=== PATIENT | female | born 2000 | race Caucasian/White ===

== ENCOUNTER 2022-02-19 20:10 | Inpatient (IN) | payer OTHER, SELFPAY ==
[2022-02-19] VITALS (31 sets, daily range): BP systolic 101–130; BP diastolic 51–96; PULSE 68–88; RESP 16–20; TEMP 36.8–37.1; O2SAT 83–100
[2022-02-19] MEDS: LACTATED RINGERS 1000 ML 1,000 ML 900 ML IV (20:49)
[2022-02-19 21:38] LABS: Basophils Percent Auto 0.1 % (0.0-3.0); Hematocrit 35.8 % (33.0-51.0); Immature Granulocytes Pct Auto 0.5 %; Lymphocytes Percent Auto 11.5 % (20-44); Mean Corpuscular HGB Conc 34 gm/dL (32-36); Mean Corpuscular Hemoglobin 31 pg (26-34); Mean Corpuscular Volume 93 fL (80-100); Monocytes Percent Auto 5.6 % (0.0-11.0); Neutrophils Percent Auto 81.3 % (42.0-72.0); Platelet Count* 315 K/uL (140-440); RDW Coefficient of Variation % 12.9 % (11.5-15.5); Red Blood Count 3.86 m/uL (4.00-5.20); White Blood Count* 18.48 K/uL (4.50-11.00)
[2022-02-19 21:39] LABS: Slide Review Reflex No
[2022-02-19] MEDS: ROPIVACAINE 0.2% 100 ml 100 ML 12 MG EPIDURAL (21:47)
[2022-02-19] MEDS: LIDOCAINE 2% (PF) 5 ML VIAL EPIDURAL (21:48)
--- NOTE | 2022-02-19 21:50 | PM.ANBPRC ---
PFSH PFS Social History Smoking Status: Current every day smoker Meds Home Medications and Allergies Home Medications Medication Instructions Recorded Confirmed Type vit no.95-ferrous tab PO 02/19/22 History fumarate 28 mg-folic acid 800 mcg tablet () Allergies Allergy/AdvReac Type Severity Reaction Status Date / Time Penicillins Allergy Swelling Unverified 02/19/22 21:05 of Lip/Tongue/Throat Results Labs Labs: Laboratory Results - last 24 hr 02/19/22 21:00 WBC 18.48 H RBC 3.86 L Hgb 12.0 Hct 35.8 MCV 93 MCH 31 MCHC 34 RDW Coeff of Mari 12.9 Plt Count 315 Neut % (Auto) 81.3 H Lymph % (Auto) 11.5 L [place] % (Auto) 5.6 Eos % (Auto) 1.0 Baso % (Auto) 0.1 Neut # (Auto) 15.00 H Lymph # (Auto) 2.10 [place] # (Auto) 1.00 H Eos # (Auto) 0.20 Baso # (Auto) 0.00 Abs Immat Gran (auto) 0.10 Imm/Tot Granulo (auto) 0.5 Vital Signs Vital Signs: Last Vital Signs Pulse 72 02/19/22 21:49 BP 124/63 02/19/22 21:49 Pulse Ox 98 02/19/22 21:46 Weight: 125.1 kg Height: 160.02 cm Anesthesia Procedures Epidural Insertion Patient Location: OB Start Time: 21:30 Stop Time: 22:00 Start Date: 02/19/22 Stop Date: 02/19/22 Reason for Block: primary anesthetic Patient Position: sitting Performed By: Donnie Jenkins Preanesthetic Checklist: IV checked, risks and benefits discussed, surgical consent, monitors and equipment checked, pre-op evaluation, timeout performed and anesthesia consent Prep: chlorhexidine gluconate Monitoring: blood pressure monitoring, insulation cupola operator, continuous pulse oximetry and heart rate Approach: midline Vertebral Space: lumbar (1-5) Needle Type: Tuohy needle Injection Technique: continuous catheter (catheter) Needle gauge: 17 Needle Length (cm): 10 cm Needle Insertion Depth (cm): 5 Catheter Gauge: 19 Catheter Type: multi-orifice Catheter at skin depth (cm): 10 Test Dose Result: negative and lidocaine 1.5% with epinephrine 1 to 200,000
[2022-02-19 21:53] LABS: SARS PCR* Negative SARS-CoV-2 (Negative)
--- NOTE | 2022-02-19 22:11 | P.OBHP_ITS ---
OB - H&P: HPI Labor/Induction History of Present Illness Date Seen: 02/19/22 Chief Complaint: The patient is a 21 year old 2 para 0010 at 41 2/7 weeks gestation by LMP consistent with first trimester US, who presents in labor, diverted from [address]. Patient presents to the ER with concerns uterine contractions and pain stating that she was checked at her clinic today and was found to be 4 cm dilated. NST upon admission, regular uterine contractions cerv ix was found to be 4-5 cm. Patient not coping well with pain desiring epidural. Admitted in labor for delivery. Chief complaint: labor : 2 Para: 0 Narrative: Letitia Guzman is a 21 year old female who had care and at [facility]. We have received a limited amount of care history. On 02/05/2022 it was documented that patient had a planned induction of labor on 02/04/2022 due to high BMI. Due to staffing issues her induction of labor was delayed. Patient was then admitted to [facility] on 02/06/2022 for induction of labor, it is documented that she was admitted for cervical ripening, no cervical change with closed cervix after multiple doses of Cytotec, unable to place a balloon. Discharge home on 02/08/2022. care labs: New OB labs: AB negative, antibody negative, rubella immune? , HIV negative, RPR negative, hepatitis-B surface antigen negative, hepatitis-C negative, gonorrhea chlamydia negative Hemoglobin from 02/06/2022 11.5. Hemoglobin A1c 5.1 Pap: Negative for intraepithelial lesion, no date Cell free DNA within normal limits, male GCT: 101 GBS positive no susceptibility and patient is allergic to penicillin History of Present Dating criteria: based on LMP care: other (Unknown, N/A at this moment) Abnormal ultrasound findings: Not available at this moment complications comment: Post-term , elevated BMI, smoker, history of major depressive diso Labs Blood type: AB (-) negative Rubella: immune RPR/VDLR: nonreactive GBS status: positive HBsAG: negative Meds Home Medications and Allergies Home Medications Medication Instructions Recorded Confirmed Type vit no.95-ferrous tab PO 02/19/22 History fumarate 28 mg-folic acid 800 mcg tablet () Allergies Allergy/AdvReac Type Severity Reaction Status Date / Time Penicillins Allergy Swelling Unverified 02/19/22 21:05 of Lip/Tongue/Throat OB - H&P: Exam Physical Exam: Vital signs: Pulse BP Pulse Ox 72 123/61 99 02/19/22 22:05 02/19/22 22:05 02/19/22 21:51 Narrative: VITAL SIGNS: As noted above. GENERAL APPEARANCE: Alert, cooperative female in pain. MOOD & AFFECT: Normal. ABDOMEN: Gravid : As per nursing 4-5 cm EXTREMITIES: Bilateral pitting edema +1 NST: 130 beats per minute/positive accelerations/negative deceleration/moderate variability/regular uterine contractions OB - Results Labs Labs: Short CBC 02/19/22 Range/Units 21:00 WBC 18.48 H (4.50-11.00) K/uL Hgb 12.0 (12.0-16.0) gm/dL Hct 35.8 (33.0-51.0) % Plt Count 315 (140-440) K/uL OB - Problem Based A/P Additional Plan (1) : Status: Acute (2) Depression: Status: Acute Plan Will try to obtain more records, we are missing results for imaging etcetera. GBS positive, allergic to penicillin, no susceptibilities available will start vancomycin per protocol. In labor, continuos monitoring, will plan to re check cervix in 4 hours from last check. Epidural being placed as this note is completed. RH negative, need to collect baby blood at delivery.
[2022-02-20] VITALS (31 sets, daily range): BP systolic 102–128; BP diastolic 51–87; PULSE 58–123; RESP 14–20; TEMP 36.6–37.1; O2SAT 96–98
[2022-02-20] MEDS: LACTATED RINGERS 1000 ML 1,000 ML 125 ML IV (01:09)
[2022-02-20] MEDS: OXYTOCIN 10 UNIT/ML INJ IM (04:17)
--- NOTE | 2022-02-20 04:32 | PM.OBPRCVD ---
Procedure Delivery date: 02/20/22 Procedure Done: only Events: Labor Augmentation Intrapartal Events: Labor Augmentation Induction method: AROM Delivery augmentation: rupture of membranes Delivery monitor: external FHT Route of delivery: Episiotomy description: None Laceration description: None Estimated blood loss (mL): 50 Anesthesia type: Epidural Disposition: floor Complications: None Narrative: The patient is a 21 year-old G 2 P 1011 admitted on 02/19/2022 at 41 Weeks, 2 Days gestation in labor for delivery.? Cervical exam on admission was 5 cm/100 % effaced/-2 station with membranes intact in vertex presentation.? Contractions were every 2-3 minutes.? heart rate demonstrated baseline 130 bpm with moderate variability, positive accelerations, negative decelerations; a category 1 tracing.? A ROM occurred at 0307 with clear fluid. ? Labor Analgesia:? Epidural ? Pitocin:? No ? Labor onset:? 02/19/2022 at 2000 ? Complete:? 0341 ? Pushing:? 0349 ? heart tones during second stage were category 2. ? At 0414 a viable male delivered in vertex ALANNAH presentation over intact perineum via spontaneous vaginal delivery.? was placed on maternal abdomen.? Cord was clamped and cut after a 30-60 second delay.? Nose and mouth were bulb suctioned.? weight pending.? 8 at 1 minute and 9 at 5 minutes.? Shoulder dystocia: No.? Nuchal cord: Yes x2. ? Placenta delivered spontaneously and complete at 0423 with a 3 vessel cord. ? Mother and infant were stable after delivery. ? Lacerations:? None. ? Blood loss: 50mL. Blood loss measurement type: QBL ? Sponge and needles counts are correct. [place] Infant Infant Gender: Male presentation: vertex Placental Delivery Description: Spontaneous Cord Description: 3 Vessels and Nuchal Cord
[2022-02-20] MEDS: DOCUSATE SODIUM 100 MG CAPSULE PO (13:00)
[2022-02-20] MEDS: ACETAMINOPHEN 500 MG TABLET 1000 MG PO (13:01)
[2022-02-20] MEDS: IBUPROFEN 600 MG TABLET PO (15:51)
[2022-02-21] MEDS: ACETAMINOPHEN 500 MG TABLET 1000 MG PO ×2 (02:58→19:51)
[2022-02-21 03:15] VITALS: BP 108/82; PULSE 69; RESP 16; TEMP 36.8; O2SAT 98
--- NOTE | 2022-02-21 07:09 | PC.NURSE ---
Throught the shift, Rn worked with patient and significant other on and the benefits of feeding. The patients child was hesitant to feed and took multiple attempts before latching and having no suck reflex with the breast. RN educated patient on formula feeding and the patient was accepting of this option. RN noticed increased frustration from mom regarding baby's lack of feeding. RN witnessed mom and dad both speaking to baby in loud and harsh tones stating Hurry up already baby, and why wont you do it already. RN educated the patient on speaking to the baby in a calm tone and how to calm a baby with the 5 S's. Patient demonstrated understanding.
--- NOTE | 2022-02-21 07:52 | P.OBPN_ITS ---
OB - PN:Subj Subjective Time Seen by Provider: 07:53 Date Seen: 02/21/22 Interval history: Letitia is a 21 y.o. who was admitted to L & D for labor. She had an uncomplicated NVD. Patient comments OB post-: no complaints, pain well controlled, tolerating diet and flatus present [place] infant status: bottle, and doing well feeding status: breast and bottle feeding Narrative: The patient feels well. The pain is well controlled with current medications. She has no new complaints. She is breast feeding and reports sh is struggling with latch.? the patient has done well.? Vitals have been stable.? She has remained afebrile.? Has a good appetite, is tolerating a general diet. She is voiding without difficulty.? She is passing gas and has not had a bowel movement.? She is ambulating and denies any dizziness.? Has Small amount of rubra lochia. OB - PN: Obj Exam Physical Exam: Vital signs: Temp Pulse Resp BP Pulse Ox O2 Del Method 98.2 F 69 16 108/82 98 02/21/22 03:15 02/21/22 03:15 02/21/22 03:15 02/21/22 03:15 02/21/22 03:15 02/21/22 03:15 Narrative: GENERAL APPEARANCE: normal affect, alert, no distress MOOD: appropriate HEENT: normocephalic, neck supple, full ROM CHEST: Symmetrical chest wall movement. Normal respiratory effort. Clear to auscultation HEART: regular rate and rhythm ABDOMEN: soft, non-tender. Uterine fundus is firm, at Umbilicus, Midline and is appropriate for the stage of recovery. Bowel sounds present. PERINEUM: mild edema of the perineum, there is no lacerations EXTREMITIES: normal and no edema OB - PN: Obj Data Labs Labs: Laboratory Results - last 24 hr 02/21/22 05:30 Hgb 10.0 L OB - PN: A/P Vaginal Delivery Assessment and Plan (1) Depression: Status: Acute (2) NVD (normal vaginal delivery): Status: Acute (3) Lactating mother: Status: Acute Plan Plan: routine care Comments: G 2 P 1 status post uncomplicated NVD 1. Continue route PP cares 2. , having difficulty w/ latch. Plan to see 3. Acute anemia. Encourage iron rich foods 4. Anticipate discharge home tomorrow. May consider discharge home today if baby is feeding better. She prefers to stay if it is not. 5. Social work consult placed by RN. Letitia has been seen yelling at the baby w hen it is struggling to latch/eat.
[2022-02-21 08:00] VITALS: BP 111/73; PULSE 54; RESP 16; TEMP 36.6; O2SAT 98
[2022-02-21] MEDS: DOCUSATE SODIUM 100 MG CAPSULE PO (08:30)
[2022-02-21] MEDS: IBUPROFEN 600 MG TABLET PO (08:30)
[2022-02-21 16:48] VITALS: BP 110/70; PULSE 52; RESP 16; TEMP 36.7; O2SAT 99
--- NOTE | 2022-02-21 20:35 | PM.OBPNVD1 ---
OB - PN:Subj Subjective Time Seen by Provider: 19:30 Date Seen: 02/21/22 Interval history: Letitia is a 21 y.o. who was admitted to L & D for labor. She had an uncomplicated NVD. feeding status: breast and bottle feeding Narrative: Pt was rounded on this morning. Baby was not eating well, and she decided to stay another day to get help with this. Pt has been noted to be agitated at times and frustrated, especially in regards to the feedings. States she was supposed to go on medication, but did not when the occurred. She expressed interest in starting medication since she is now . Spoke w/ pt about history of medication, and she does not know what she has previously taken or what they were planning to start her on. She admits to a history of depression, anxiety and bipolar. When mentioned, she believes she may have previously taken lexapro and that it did not work for her. OB - PN: Obj Exam Physical Exam: Vital signs: Temp Pulse Resp BP Pulse Ox O2 Del Method 98.1 F 52 L 16 110/70 99 02/21/22 16:48 02/21/22 16:48 02/21/22 16:48 02/21/22 16:48 02/21/22 16:48 02/21/22 16:48 Constitutional: Constitutional: mild distress, cooperative and agitated Routine HEENT Exam: Head: Present normocephalic Routine Neck Exam: Neck: Present full ROM Routine Back/Spine/Pelvis Exam: Back/Spine: Present full ROM Routine Neurological Exam: Neurological: Present alert and oriented X3 Routine Psychiatric Exam: Psychiatric: Present normal affect, normal thought process, cooperative, anxious and agitated OB - PN: Obj Data Labs Labs: Laboratory Results - last 24 hr 02/21/22 05:30 Hgb 10.0 L OB - PN: A/P Vaginal Delivery Assessment and Plan (1) Depression: Status: Acute (2) NVD (normal vaginal delivery): Status: Acute (3) Lactating mother: Status: Acute Plan day: 1 Plan: routine care Comments: Pt was seen by CNM because the RNs stated she expressed interest in being on medication. Pt feels the problem is more her depression & anxiety and less her bipolar at this time. Given her history, and concern for lack of follow up as she is routinely seen in another hospital system, recommendation made that she follow up with psychiatry for medication management and follow up. Referral placed to Alisha Chacon at [facility]. Pt could also follow up with her PCP at [facility].
[2022-02-21 23:28] VITALS: BP 117/75; PULSE 62; RESP 18; TEMP 36.7; O2SAT 97
[2022-02-22] MEDS: ACETAMINOPHEN 500 MG TABLET 1000 MG PO (05:10)
--- NOTE | 2022-02-22 08:30 | PM.OBDSVD1 ---
DS: Providers Provider Date Seen: 02/22/22 Date of admission: 02/19/22 20:30 Primary care physician: Not a Local Provider Admitting Clinician: Kami Jordan MD Consults: 02/21/22 07:22 Consult to Chart Reader [CONS] Urgent Comment: Social, High stress pt, inappropriate comm with NB Reason for Consult:: Social Service Consult Attending Physician on discharge: Kami Jordan MD Date of Discharge: 02/22/22 DS: Diagnosis Discharge Diagnosis (1) History of bipolar disorder: Status: Acute (2) Anxiety and depression: Status: Acute (3) Lactating mother: Status: Acute (4) NVD (normal vaginal delivery): Status: Acute Exam Narrative: Exam Narrative: GENERAL APPEARANCE:? normal affect, alert, no distress? MOOD:? appropriate? CHEST:? clear to auscultation and percussion? HEART:? regular rate and rhythm? ABDOMEN:? soft, non-tender the uterine fundus is 2 cm Below Umbilicus, Midline and is appropriate for the stage of recovery.? PERINEUM:? mild edema of the perineum, her perineum is intact.? EXTREMITIES:? normal and no edema? Patient has no complaints? No active bleeding?? Doing well? She is requesting discharge home. Const: Vital Signs, click to edit/add: Vital Signs - 24 hr 02/21/22 16:48 02/21/22 23:28 Temperature 98.1 F 98.0 F Pulse Rate [Pulse Oximeter] 52 L 62 Respiratory Rate 16 18 Blood Pressure [Le ft Arm] 110/70 117/75 Pulse Oximetry 99 97 Oxygen Delivery Me thod Room Air Room Air OB - DS: Summary Hospital Course Hospital Course: Patient is a 21year old, G 2 now P 1? admitted on 02/19/22 at 39 Weeks, 0 Days gestation for spontaneous labor. Care received in [place] but diverted here due to staffing issues there.? She had an uncomplicated vaginal delivery.? She delivered a viable male infant.? She is breast feeding and reports things are getting better. she is open to supplementation with formula. She states that she thought it would be much easier so is sometimes frustrated. she was seen by medical social consultant after staff witnessed her talking in raised voices to the baby and seeming frustrated with feedings. They state that she is being followed by a public health nurse and a referral was made to psychiatry.? the patient has done well.? Her pain is well controlled with current medications.? She has no new complaints.? Vitals have been stable. She has remained afebrile. She is voiding without difficulty. She is passing gas and has had a bowel movement. She is ambulating and denies any dizziness. She is planning condoms for control.?Reviewed that she ovulates before return of menstruation. She doesn't want to go on control pills because they messed with my periods when she was in high school.?? Peripartum Data Infant delivery method: Vaginal Laceration description: None Episiotomy description: None complications: none [place] Infant Gender: Male Discharge Plan: Home Status at Discharge Functional status at discharge: independent ambulation Overall status at discharge: patient is progressing back to baseline Time Spent with Patient Time attestation: Total time spent providing and/or coordinating discharge services: Discharge Plan Discharge Disposition: Home, Self-Care Date of Admission: 02/19/22 20:30 Primary Care Provider: Provider,Not a Local Condition: Stable Anticipated Discharge Date/Time: 02/22/22 10:00 Discharge Medications: New docusate sodium 100 mg Capsule 100 mg PO DAILY Qty: 90 0RF Rx Instructions: Take 1-2 tablets daily as needed for constipation. ibuprofen 600 mg Tablet 600 mg PO Q6H PRNQty: 60 0RF Continued PNV cmb#95-ferrous fumarate-FA [] 28 mg iron- 800 mcg tablet PO Label Comments: TAKE 1 TABLET BY MOUTH DAILY Discharge Orders: Discharge Order (Routine); Ordered 02/22/22 Ordered By: Gisel Middleton Patient Education: OB Over the Counter Medication Information, OB Vaginal/Breast Feeding Additional Instructions: Discharge instructions were reviewed with the patient including signs and symptoms of infection and home going medications.? Do not drive while taking pain meds.? Off Work or School for 6 weeks.? ?? Symptoms to report to doctor:? -Bleeding that saturates more than one pad per hour? -Passing clots larger than the size of a golf ball? -Pain not relieved by prescribed medication? -Fever above 100.4 degrees Fahrenheit? -A foul vaginal odor? -Difficulty in emotions, mood and functions? -Thoughts of hurting yourself and/or ? -Painful, reddened area in your breast? -Any drainage, redness or tenderness in your IV/epidural site? -Severe headache that doesn't improve after taking medications? -Changes in vision, including temporary loss of vision, blurred vision, and/or light sensitivity? -Upper abdominal pain (usually under ribs on the right side)? -Decrease in urination or painful, frequent urinating? -Chest pain? -Shortness of breath? -Tenderness or pain with redness and/swelling in the calf(s) of your leg? ?? Follow Up in clinic in 2 and 6 weeks.? ?? consultation services are available to all mothers and babies for the first year after delivery.? To make an appointment, please call [phone].? Activity Level: No Restrictions and Activity as Tolerated Activity Detail: Appointment March 08 at 2:15 pm with Gisel Middleton CNM Discharge Diet: Regular Follow Up Appointments: [facility] [Provider Group] Provider,Not a Local [Primary Care Provider] - Forms: MyHealth Info Instructions
[2022-02-22 09:15] VITALS: BP 120/72; PULSE 64; RESP 18; TEMP 36.3; O2SAT 98
--- NOTE | 2022-02-22 10:14 | PC.SOCIAL ---
Late entry note from 02/21/22. Met with pt and pt's significant other in pt's room. Introduced self to pt and pt's significant other. Pt asked this worker if this worker was there to take her baby from her. Explained the social work role in the hospital setting. Informed pt that [facility] wants to ensure that pt has all the resources she needs to be successful at home with her . Discussed concerns of pt using a paez voice directed at baby during time. Pt states that she was frustrated with herself when this occurred and she was not directing it at the baby. Pt discusses that she understands is best for baby and it frustrates her when the baby originally latched on and fed but then at later feedings baby would not latch on as easy. Offered mental health resources for therapy services and pt declined. Discussed the garden consultant and asked if it would be helpful for pt to have the information going home so she can have support for . Pt stated she would like the information. Discussed that newborns sense parents feelings including frustration and may react to pt's feelings. Discussed [facility] as being an excellent resource for information and assistance with a . Pt states that she is currently working with [facility] and is also currently signed up with [facility] services. Pt states that [facility] has offered resources for her also and she will be meeting with [facility] after discharging from the hospital. Provided information on parenting classes through [facility] and discussed how pt can go to the [facility] website and register for classes and view the class selection. Informed that classes may be beneficial since pt disclosed she is a first time mother. Informed pt that social work is available to her if she has any other questions or concerns. Social work will follow up as necessary.
== END 2022-02-22 10:30 | disposition home or self-care (01) | DRG 560 ==
PROVIDERS: Admitting Provider Obstetrics & Gynecology; Visit Provider Obstetrics & Gynecology
DX: O48.0 Post-term pregnancy (principal); O99.824 Streptococcus B carrier state complicating childbirth; O99.344 Other mental disorders complicating childbirth; F32.9 Major depressive disorder, single episode, unspecified; F41.9 Anxiety disorder, unspecified; O99.334 Smoking (tobacco) complicating childbirth; F17.210 Nicotine dependence, cigarettes, uncomplicated; Z3A.41 41 weeks gestation of pregnancy; Z37.0 Single live birth
CPT/HCPCS: 01967; 36415; 85018; 85025; 86850; 86900; 86901; 87635; 99213; A9270; J2590; J2795; J3010; J3370; J7120

== ENCOUNTER 2022-03-24 20:20 | Emergency (ER) | payer OTHER, SELFPAY ==
[2022-03-24 20:26] VITALS: BP 128/79; PULSE 102; RESP 16; TEMP 36.3; O2SAT 96
--- NOTE | 2022-03-24 20:52 | ED_ITS ---
HPI - Dental/Oral General Chief complaint: Dental/Oral/Mouth Injury/Pain Stated complaint: Left side tooth pain, Can't eat Time Seen by Provider: 03/24/22 20:36 History of Present Illness HPI Narrative: 21-year-old young woman here with significant other with concern of tooth pain. This started yesterday. Does not recall any particular trauma. She apparently did have a temporary filling placed during her last probably about 5 months ago in lieu of a root canal. She said things were going well until yesterday. Has not had any fever. Has noticed a little bit of swelling. No drainage. Ibuprofen took a little bit of the edge off. She is worried that she might be developing an infection. Apparently significant other had rather significant dental infection once upon a time. Sensitive to both hot and cold. A given timing she intends to get a dental appointment after the new year. Related Data Home Medications Medication Instructions Recorded Confirmed vit no.95-ferrous tab PO 02/19/22 03/08/22 fumarate 28 mg-folic acid 800 mcg tablet () Previous Rx's Medication Instructions Recorded docusate sodium 100 mg capsule 100 mg PO DAILY #90 caps 02/22/22 ibuprofen 600 mg tablet 600 mg PO Q6H PRN #60 tabs 02/22/22 Allergies Allergy/AdvReac Type Severity Reaction Status Date / Time Penicillins Allergy Swelling Unverified 03/08/22 15:05 of Lip/Tongue/Throat Review of Systems Status of ROS: Reports: 6 or more systems reviewed and unremarkable except as noted in History and below [facility] Medical History Bipolar disorder Social History Smoking Status: Current every day smoker Second hand tobacco smoke exposure: Yes How often do you have a drink containing alcohol: never AUDIT-C Alcohol total score: 0 Non-prescribed substance use: denies use Little interest or pleasure in doing things: not at all Feeling down, depressed, or hopeless: not at all service: No Exam Narrative: Exam Narrative: Pleasant. NAD. Dressed in her jammies. Breathing easily. Skin is warm and dry. Neck is supple without lymphadenopathy. Perhaps very subtle swelling in the middle of the left mandible. Not particularly tender here. Oropharynx moist. Hyperemic consistent with smoking. There is plaque along the gum line on the tooth in question 19.. This has a white intact brought filling over the chewing surface. I do not appreciate swelling along the gums or elsewhere in the mouth. Mildly tender to percussion. Const: Vital Signs, click to edit/add: Vital Signs - 24 hr 03/24/22 20:26 Temperature 97.3 F L Pulse Rate [Left P ulse Oximeter] 102 H Respiratory Rate 16 Blood Pressure [Ri ght Upper Arm] 128/79 Pulse Oximetry 96 Oxygen Delivery Me thod Room Air Documenting provider has reviewed patient's vital signs: yes Course Vital Signs Vital signs: Initial Vital Signs Temperature 97.3 F L 03/24/22 20:26 Temperature Source Temporal Artery Scan 03/24/22 20:26 Pulse Rate 102 H 03/24/22 20:26 Pulse Rhythm 03/24/22 20:26 Respiratory Rate 16 03/24/22 20:26 Blood Pressure 128/79 03/24/22 20:26 Blood Pressure Mean 95 03/24/22 20:26 Blood Pressure Position Sitting 03/24/22 20:26 Pulse Oximetry 96 03/24/22 20:26 Oxygen Delivery Method 03/24/22 20:26 Vital Signs Temperature 97.3 F L 03/24/22 20:26 Pulse Rate 102 H 03/24/22 20:26 Respiratory Rate 16 03/24/22 20:26 Blood Pressure 128/79 03/24/22 20:26 Pulse Oximetry 96 03/24/22 20:26 Oxygen Delivery Method 03/24/22 20:26 Temperature 97.3 F L 03/24/22 20:26 Pulse Rate 102 H 03/24/22 20:26 Respiratory Rate 16 03/24/22 20:26 Blood Pressure 128/79 03/24/22 20:26 Pulse Oximetry 96 03/24/22 20:26 Oxygen Delivery Method 03/24/22 20:26 MDM - Dental/Oral MDM Narrative Medical decision making narrative: I do offer injection for pain. It certainly is possible that could be developing an infectious process here; or more probable perhaps that related to the dental issue already having. Had been apparently recommended for root canal but due to had been deferred. I think it would be appropriate to initiate an antibiotic. Does not feel she needs more than ibuprofen at this time. She is hopeful that an antibiotic would kick in soon. Given what sounds like a significant allergy to penicillin will otherwise try cephalexin from [facility]. Medical Records Attestation: I reviewed the patient's medical records. Discharge Plan Discharge Clinical Impression: Pain, dental Patient Disposition: Home, Self-Care Condition: Stable Additional Instructions: At this time can continue with ibuprofen up to 800 mg per dose or alternative to that might be up to 500 mg of naproxen 2 times daily. Either can be combined with up to 1000 mg of acetaminophen per dose. Cephalexin from [facility]. Take the cephalexin for 8 days. I hope you can manage to find a dental appointment soon. A happier new year to you. Prescriptions: No Action PNV cmb#95-ferrous fumarate-FA [] 28 mg iron- 800 mcg tablet PO Label Comments: TAKE 1 TABLET BY MOUTH DAILY docusate sodium 100 mg Capsule 100 mg PO DAILY Qty: 90 0RF Rx Instructions: Take 1-2 tablets daily as needed for constipation. ibuprofen 600 mg Tablet 600 mg PO Q6H PRNQty: 60 0RF Follow Up/Referrals: Provider,Not a Local [Primary Care Provider] - Stand Alone Forms: [email or web address] Info Instructions
== END 2022-03-24 21:11 | disposition home or self-care (01) ==
LOC: ED 20:53
PROVIDERS: Emergency Provider Family Medicine
DX: K08.89 Other specified disorders of teeth and supporting structures (principal)
CPT/HCPCS: 99283

== ENCOUNTER 2024-04-12 20:42 | Emergency (ER) | payer OTHER, SELFPAY ==
--- OUTSIDE RECORDS SUMMARY | 2024-04-12 20:45 | XMS_ITS | Continuity of Care Document ---
Author Organization 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 Role Phone Unavailable Unavailable Unavailable Allergies, Adverse Reactions, Alerts Substance Reaction Status Criticality PENICILLIN Active No Information Medications Medication Instructions Dosage Effective Dates (start - stop) Status Comments Zoloft 50 mg tablet 1.5 tablet by Oral route 1 time per day - Active Zoloft 1.5 tablet by Oral route 1 time per [id number] Tablet1 Trivora (28) 50-30 (6)/75-40(5)/125-3 0(10) tablet 1 Tablet by Oral route 1 time per day - Active Trivora (28 ) 1 Tablet by Oral route 1 time per day1 Pack3 Clindacin P 1 % topical swab 1 Topical by Oral route 1 time per day - Active Clindacin P 1 Topical by Oral route 1 time per day60 Milliliter1 Results Test Name Date and Time Measure Units Reference Range Abnormal Flag Status Commen ts Panel Description: Not Available Final Depression Screen 00:00:00 Final Advance Directives Directive Yes / No Effective Date File Name No Information Encounters Encounter Description Practice Location Reason(s) For Visit Diagnoses Date Provider Providers Copied on Encounter [facility], [address], [place], [place], [id number] , [place] tel: [phone] [facility] Historical Location No Information [address] [facility], [address], [place], [place], [id number] , tel: [phone] [facility] Historical Location No Information 8 Alphonso Charles. [address], [place], [place], [id number], [place]. tel: [facility], [address], [place], [id number] , [place] tel: [phone] [facility] Historical Location Major depressive disorder, recurrent, unspecified ICD10 [address] [facility], [address], [place], [id number] , [place] tel: [phone] [facility] Historical Location No Information 8 Freel Araceli. [address], [place], [place], [id number], [place]. tel: [facility], [address], [place], [id number] , [place] tel: [phone] [facility] Historical Location S70.361_Insect bite (nonvenomous), right thigh [address] [facility], [address], [place], [id number] , [place] tel: [phone] [facility] Historical Location No Information 8 Freel Araceli. [address], [place], [place], [id number], [place]. tel: [facility], [address], [place], [id number] , [place] tel: [phone] [facility] Historical Location Painful micturition, unspecified [id number] ICD10 [address] [facility], [address], [place], [id number] , [place] tel: [phone] [facility] Historical Location No Information [address] [facility], [address], [place], [id number] , [place] tel: [phone] [facility] Historical Location Encounter for immunization ICD10 [address] [facility], [address], [place], [id number] , [place] tel: [phone] [facility] Historical Location Dorsalgia, unspecified ICD10 May-2 [address] [facility], [address], [place], [place], [id number] , tel: [phone] [facility] Historical Location Cough [id number] media, unspecified, unspecified ear [id number] specified disorders of urinary system OFY80Bdjqd specified inflammation of vagina and vulva [id number] for contraceptive management, unspecified [id number] for surveillance of other contraceptives DQN01Aatalbjpv for immunization [id number]_UN SPECIFIED SPRAIN OF UNSPECIFIED HIPAcne, unspecified [id number] for routine child health exam w/o abnormal findings ICD10 [address] [facility], [address], [place], [id number] , tel: [phone] [facility] Historical Location Urticaria, unspecified ICD10 5 No Information Family History Family Member Type Diagnosis Age At Onset No Information Immunizations Vaccine Date Status Comments Influenza administered Note: Administe yvonne lagos ; Source: New Immunization Record Influenza administered Note: Given MF MA ; Source: New Immunization Record Meningococcal administered Note: Given MF MA ; Source: New Immunization Record Hep B administered Source: New Imm unization Record Varicella administered Source: New Imm unization Record MMR administered Source: New Imm unization Record Meningococcal administered Source: New Im munization Record [id number] administered Source: New Imm unization Record DTaP administered Source: New Imm unization Record DTaP-IPV administered Source: New Imm unization Record Tdap administered Source: New Imm unization Record HIB administered Source: New Imm unization Record Hep A administered Source: New Imm unization Record HPV administered Source: New Imm unization Record Payers Payer name Insurance type Covered libertarian ID Authoriza tion(s) No Information Social History Type Description Quantity Date Captured Comments Sex Female Smoking Status No Information Chief Complaint And Reason For Visit No Information Reason For Referral Reason For Referral No Information History Of Present Illness Encounter Date Complaint History Of Prese nt Illness No Information Functional Status Date Functional Assessmen t No Information Instructions Date Instruction Additional Infor mation No Information Assessments Type Assessment Date No Information Patient Care Teams Name Effective Dates (start - stop) Status Members No Information
--- OUTSIDE RECORDS SUMMARY | 2024-04-12 20:45 | XMS_ITS | Referral Summary ---
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 Primary Care Provider Source Comments Patient records contain information from all sites at [facility]. For routine questions regarding patient records, call [phone] during business hours, M-F 8:00 AM - 5:00 PM Central Time. Record requests for emergency care only can be directed to [phone] at any time.[facility] Allergies Active Allergy Reactions Criticality Noted Date Comments Penicillins Anaphylaxis High 05/11/2021 Medications * This document contains information received from the source organization and may not represent a complete record from that organization. acetaminophen (TYLENOL) 500 mg tablet Take 500 mg by mouth every 6 (six) hours as needed for pain. Active vitamin-iron fumarate-FA ( Vitamin with Minerals) 28 mg iron- 800 mcg tabletIndication s:Encounter For Supervision Of Normal First Unspecified Trimester (HCC) Take 1 tablet by mouth daily. 60 tablet 3 2 Active cholecalciferol, vitamin D3, (cholecalciferol ) 25 mcg (1,000 Unit) tablet Take 1 tablet (25 mcg total) by mouth daily. 90 tablet 3 2 Active Additional Information Patient not taking.Reported on 08/01/2022 Active Problems Patient Care Coordination No te Formatting of this note migh t be different from the original. First trimester OB education completed. Pre-reg completed at [facility]. 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 Compared with normal- weight women, obese women are at increased risk of cardiac dysfunction, proteinuria, sleep apnea, nonalcoholic fatty liver disease, gestational diabetes mellitus, preeclampsia and stillbirth. Intrapartum; obese women are at increased risk of delivery, failed trial of labor, endometritis, wound rupture or dehiscence, and venous thrombosis. Maternal risks also include obstructive sleep apnea, carpal tunnel syndrome. These women are also at risk for excessive weight gain in and an inability to lose the weight following . Fetuses of obese gravidas are also at increased risk of macrosomia and impaired growth, Long-term risks for the offspring of obese women include an increased risk of metabolic syndrome and childhood obesity. Maternal obesity also has also been linked to altered behavior in the offspring, including an increased risk of autism spectrum disorders, childhood developmental delay, and attention-deficit/hyperactivity disorder. Recommendations include a detailed ultrasound survey, screening for pregestational diabetes, serial growth ultrasounds, surveillance beginning at 36 weeks, delivery at 39 weeks if not indicated sooner. Recommend no weight gain this . Depression Major Recurrent Moderate 06/30/2021 Overview (06/30/2021): No current medications No current mental health care Reports stable mood for past year No prior hospitalizations No suicidality Encounter For Supervision Of Normal First Unspecified Trimester 06/30/2021 Overview (09/28/2021): Breast feeding Contraception: condoms, possibly LARC Abuse Tobacco Smoking 05/11/2021 Overview (06/30/2021): risks associated with tobacco use include orofacial clefts, growth restriction, placenta previa, placental abruption, prelabor rupture of membranes, low weight, increased mortality, ectopic , and decreased maternal thyroid function. An estimated 5-8% of deliveries, 13-19% of term infants with low weight, 22-34% cases of sudden syndrome, and 5-7% of - related deaths have been attributed to maternal smoking. In addition, secondhand exposure to tobacco smoke is associated with as much as a 20% increase in risk of a low weight infant. The risks of smoking during include complications. Children born to women who smoke during are at an increased risk of respiratory infections, asthma, infantile colic, bone fractures, and childhood obesity. Estimated Date of Delivery Comme nts Yes 07/13/2024 Based on last me nstrual period of 10/07/2023 Resolved Problems Problem Noted Date Diagnosed Date Resolved Date Complete Spontaneous 05/11/2021 09/28/2021 Encounter For Prophylactic R hogam D Immune Globulin 05/11/2021 09/28/2021 Type AB Blood Rhesus Negative 05/11/2021 09/28/2021 Overview (05/11/2021): Per report of patient based on testing at [facility] on 05/03/2021 Immunizations Immunization Administration Dates Next Due Rho (D) Immune Globulin (IM only) 11/17/2021, Tdap 11/17/2021 Social History Tobacco Use Types Packs/Day Years Used Date Smoking Tobacco: Former Cigarettes Smokeless Tobacco: Never Tobacco Cessation:Counseling Given: Not Answered Alcohol Use Standard Drinks/Week Comments Not Currently 0 (1 standard drink = 0.6 oz pur e alcohol) [facility] Utilities Answer Date Recorded In the past 12 months has [facility] [employer], oil, or water [employer] threatened to shut off services in your home? No 11/10/2023 Humiliation, Afraid, Rape, and Kick questionnair e Answer Date Recorded Within the last year, have y ou been afraid of your partner or ex-partner? No 06/21/2021 Within the last year, have y ou been humiliated or emotionally abused in other ways by your partner or ex-partner? No Within the last year, have y ou been kicked, hit, slapped, or otherwise physically hurt by your partner or ex-partner? No 06/21/2021 Within the last year, have y ou been raped or forced to have any kind of sexual activity by your partner or ex-partner? No 06/21/2021 Social Connection and Isolat ion Panel [NHANES] Answer Date Recorded In a typical week, how many times do you talk on the phone with family, friends, or neighbors? Three times a week 06/21/2021 How often do you get togethe r with friends or relatives? More than three times a week 06/21/2021 How often do you attend chur ch or adventism services? Never 06/21/2021 Do you belong to any clubs o r organizations such as restorationism groups, unions, fraternal or athletic groups, or school groups? No 06/21/2021 How often do you attend meet ings of the clubs or organizations you belong to? Never 06/21/2021 Are you , , di vorced, , never , or living with a partner? Living with partner 06/21/2021 AUDIT-C Answer Date Recorded Q1: How often do you have a drink containing alc ohol? Never 06/21/2021 Average Number of Drinks Not on file 022 Frequency of Binge Drinking Not on file 05/25 Overall Financial Resource Strain (CARDIA) Answe r Date Recorded How hard is it for you to pa y for the very basics like food, housing, medical care, and heating? Very hard 06/21/2021 PHQ-2 Answer Date Recorded PHQ-2 Score 0 11/13/2023 [facility] Questionnaire Answer Date Recorded Do you feel stress - tense, restless, nervous, or anxious, or unable to sleep at night because your mind is troubled all the time - these days? Very much 06/21/2021 Exercise Vital Sign Answer Date Recorde d On average, how many days pe r week do you engage in moderate to strenuous exercise (like a brisk walk)? 7 days 11/10/2023 On average, how many minutes do you engage in exercise at this level? 130 min 11/10/2023 Hunger Vital Sign Answer Date Recorded Within the past 12 months, y ou worried that your food would run out before you got the money to buy more. Never true 11/10/19 24 Within the past 12 months, t he food you bought just didn't last and you didn't have money to get more. Never true 11/10/2023 PRAPARE - Transportation Answer Date Re corded In the past 12 months, has l ack of transportation kept you from medical appointments or from getting medications? No 10/23 In the past 12 months, has l ack of transportation kept you from meetings, work, or from getting things needed for daily living? No 11/10/2023 Depression Answer Date Recor ded PHQ-9 Total Score (max 27) 0 11/12 Nutrition Answer Date Recorded On average, how many serving s of fruits and vegetables do you eat per day (serving size is equal to 1 cup or approximately the size of a tennis ball)? 3-5 11/10/2023 Dental Answer Date Recorded Dental: Regular Dentist No 06/22/19 Employment Answer Date Recorded Employment status Employed and actively working without restrictions 11/10/2023 Housing Stability Answer Date Recorded What is your living situation today? I have a [facility] place to live 11/10/2023 Education Answer Date Recorded What is the highest level of school you have completed or the highest degree you have received? 11th grade 06/21/2021 Estimated Date of Delivery Comme nts Yes 07/13/2024 Based on last me nstrual period of 10/07/2023 Sex and Gender Information Value Date Recorded Sex Assigned at Female 06/21/2021 3:06 PM CDT Legal Sex Female 2:35 PM SEED TECHNICIAN Gender Identity Female 06/21/2021 3:06 PM CDT Sexual Orientation Straight 07/27/2022 7: 29 PM CDT Last Filed Vital Signs Vital Sign Reading Time Taken Comments Blood Pressure 120/64 02/19/2022 3:31 PM SEED TECHNICIAN Pulse 68 05/11/2021 9:05 AM SEED TECHNICIAN Temperature - - Respiratory Rate 16 05/11/2021 9:05 AM SEED TECHNICIAN Oxygen Saturation - - Inhaled Oxygen Concentration - - Weight 126 kg (277 lb 3.7 oz) 02/19/2022 3:31 PM SEED TECHNICIAN Height 168 cm (5' 6.14) 06/30/2021 3:37 PM CDT Body Mass Index 44.56 06/30/2021 3:37 PM CDT Plan of Treatment Not on file Procedures Procedure Name Priority Date/Time Associated Diagnosis Comments HCV AB SCRN W/REFLEX TO HCV PCR, S Routine 06/30/2021 4:36 PM CDT Encounter For Supervision Of Normal First Unspecified Trimester HIV-1/-2 AG AND AB SCRN, PLASMA Routine 06/30/2021 4:36 PM CDT Encounter For Supervision Of Normal First Unspecified Trimester CHLAMYDIA/GONORRHOE AE AMPLIFIED RNA Routine 06/30/2021 4:21 PM CDT Encounter For Supervision Of Normal First Unspecified Trimester THINPREP SCREEN HPV REFLEX Routine 06/30/2021 4:21 PM CDT Encounter For Supervision Of Normal First Unspecified Trimester from Last 3 Months or Most Recently Relevant to Health Maintenance Results * HIV-1/-2 Ag and Ab Scrn, Plasma (06/30/2021 4:36 PM CDT) HIV Ag/Ab Scrn, P Negative Negative 07/03/2021 12:51 PM CDT [facility] Comment: Negative result does not rule out HIV infection. If exposure to HIV infection occurred <14 days ago, contact the laboratory to request addition of HIV-1 RNA detection / quantification test. HIV-1 p24 Ag Scrn, P Negative Negative 07/03/2021 12:51 PM CDT [facility] Comment: Negative result does not rule out HIV infection. If exposure to HIV infection occurred <14 days ago, contact the laboratory to request addition of HIV-1 RNA detection / quantification test. HIV-1 Ab Scrn, P Negative Negative 07/03/2021 12:51 PM CDT [facility] Comment: Negative result does not rule out HIV infection. If exposure to HIV infection occurred <14 days ago, contact the laboratory to request addition of HIV-1 RNA detection / quantification test. HIV-2 Ab Scrn, P Negative Negative 07/03/2021 12:51 PM CDT [facility] Comment: Negative result does not rule out HIV infection. If exposure to HIV infection occurred <14 days ago, contact the laboratory to request addition of HIV-1 RNA detection / quantification test. Blood (Blood, Venous) 06/30/2021 4:36 PM CDT 07/02/2021 10:40 AM CDT us Donovan Mccarty M.D. LAB MICROBIOLOGY - BLOOD ORD ERABLES Final Result [facility] [address] [place] [id number], [place] [facility] [place] [address] [place] [id number] * HCV Ab Scrn w/Reflex to HCV PCR, Serum (06/30/2021 4:36 PM CDT) HCV Ab Screen, S Negative Negative 07/01/2021 10:20 AM CDT [facility] Comment:Wwndib-ih-tkupdt rat io is <1.00. Blood (Blood, Venous) 06/30/2021 4:36 PM CDT 07/01/2021 8:51 AM CDT us Donovan Mccarty M.D. LAB MICROBIOLOGY - BLOOD ORD ERABLES Final Result [facility] [address] [place] [address] [facility] Dept. of Laboratory Medicine and Pathology [address] [place] [address] * ThinPrep Screen HPV Reflex (06/30/2021 4:21 PM CDT) 07/04/2021 11:39 AM CDT [facility] Report electronically signed by TK Sal(ASCP) I verify that I have examined all relevant slides/materials for the specimen(s) and rendered or confirmed the diagnosis. 07/04/2021 11:39 AM CDT [facility] Gross Description Received specimen in a ThinPrep vial. 07/04/2021 11:39 AM CDT [facility] Pap Test Source Cervical/Endocervi jeison 07/04/2021 11:39 AM CDT [facility] Clinical History 1st pap 07/05/19 11:39 AM CDT [facility] Menstrual Status(LMP, PM, ) 07/04/2021 11:39 AM CDT [facility] Hormone Therapy/Contracep tives None/Not known 07/04/2021 11:39 AM CDT [facility] Interpretation Cervical/Endocervi jeison (ThinPrep): Satisfactory for Evaluation Endocervical/trans formation zone components absent Negative for Intraepithelial Lesion or Malignancy Shift in thierry suggestive of bacterial vaginosis 07/04/2021 11:39 AM CDT [facility] Varies (Cervix/Endocerv ix) 06/30/2021 4:21 PM CDT 07/03/2021 9:26 AM CDT us Donovan Mccarty M.D. LAB PAP PATHDX ORDERABLES Fi nal Result Performing Organization Address [facility] Co de Phone Number [facility] [address] [place] [address] [facility] [address] [place] [address] * Chlamydia / Gonorrhoeae Amplified RNA (06/30/2021 4:21 PM CDT) Source Swab, Vagina 07/01/2021 12:42 AM CDT [facility] Chlamydia trachomatis amplified RNA Negative Negative 07/01/2021 12:42 AM CDT [facility] Source Swab, Vagina 07/01/2021 12:42 AM CDT [facility] Neisseria gonorrhoeae amplified RNA Negative Negative 07/01/2021 12:42 AM CDT [facility] Varies (Vagina) 06/30/2021 4 :21 PM CDT 06/30/2021 7:08 PM CDT us Donovan Mccarty M.D. LAB MICROBIOLOGY - GENERAL O RDERABLES Final Result Performing Organization Address [facility] Co de Phone Number [facility] [address] [place] [address] [facility] [place] [address] from Last 3 Months or Most Recently Relevant to Health Maintenance Insurance [facility] [place] [id number] [address] [id number] Care Teams Waste Water Worker Relationship Specialty Start Date End Date Hipolito Acuna M.D. [address] [place] [phone] PCP - General 11/14/23
--- OUTSIDE RECORDS SUMMARY | 2024-04-12 20:45 | XMS_ITS | Clinical Summary ---
Author Organization [employer] [facility] [employer] [facility] Address [place], [place] [address] Care Team Providers Care Cabinet Mounter Name Role Phone Pcp, No Primary Care Provider Unavailabl e Allergies Active Allergy Reactions Criticality Noted Date Comments Penicillins Throat Swelling/Closing,Vomiting,Anaphylaxis High 07/31/2020 Medications acetaminophen (TYLENOL) 325 mg tablet Take 650 mg by mouth every 6 hours. Max acetaminophen dose: 4000mg in 24 hrs. Active Breast PumpIndications :Lactating mother Electronic breast pump for home use. Gestational age at delivery: 41 weeks. Reason for need: Mom has underdeveloped or physical issue with breasts. Length of need: 12 months. 1 Each 03/05/20 22 Active cephalexin (KEFLEX) 500 mg capsule 03/24/20 22 Active methylPREDNISol one (Medrol, Eloy,) 4 mg tabletIndicatio ns:Gum inflammation,To oth pain with chewing Take by mouth as instructed per packaging. 21 Tablet 04/06/19 23 Active rx albuterol HFA (PROVENTIL; VENTOLIN) (90 mcg each actuation) inhaler (ED DC MED)Indications :Wheezing Inhale 2 Puffs by mouth every 4 hours if needed (Shortness of breath). 6.7 g 07/02/19 23 Active rx benzonatate (TESSALON) 100 mg capsule (ED DC MED)Indications :Acute cough Take 1 Capsule (100 mg) by mouth every 4 hours if needed (Cough). 4 Capsule 07/02/19 23 Active benzonatate (TESSALON) 100 mg capsuleIndicati ons:Wheezing,Ac cristian cough Take 1 Capsule (100 mg) by mouth 3 times daily if needed for Cough. 15 Capsule 07/02/19 23 Active oxyCODONE (ROXICODONE) 5 mg immediate release tabletIndicatio ns:Dental infection Take 1 Tablet (5 mg) by mouth 3 times daily if needed for Pain. 10 Tablet 12/25/19 23 Active progesterone micronized (PROMETRIUM) 100 mg capsuleIndicati ons:Recurrent loss Insert 2 Capsules (200 mg) into the vagina at bedtime. This product contains peanut oil. Please verify patient allergies. 35 Capsule 1 01/15/20 24 Active aspirin chewable 81 mg chewable tabletIndicatio ns:Recurrent loss Chew 1 Tablet (81 mg) by mouth once daily with a meal. 35 Tablet 3 01/15/20 24 Active Vit-Iron Fumarate-FA 28 mg iron- 800 mcg tab tabletIndicatio ns:Threatened miscarriage,Les s than 8 weeks gestation of Take 1 Tablet by mouth once daily. 30 Tablet 04/10/19 25 Active Active Problems Problem Noted Date Diagnosed Date Encounter for planned induction of labor 022 Uterine contractions 02/17/2022 Type AB blood, Rh negative 02/17/2022 Need for rhogam due to Rh negative mother 2021 GBS (group B Streptococcus c arrier), +RV culture, currently 02/17/2022 Post-term , 40-42 weeks of gestation Obesity affecting in third trimester 1 Encounter for supervision of normal first , unspecified trimester 06/30/2021 Overview (02/17/2022): Breast feeding Contraception: condoms, possibly LARC Moderate episode of recurrent major depressive d isorder 06/30/2021 Overview (02/17/2022): No current medications No current mental health care Reports stable mood for past year No prior hospitalizations No suicidality Morbid obesity 06/30/2021 Overview (02/17/2022): Discussed increased risk of spontaneous abortions, neural [...] sooner. Recommend no weight gain this . Tobacco dependence syndrome 05/11/2021 Overview (02/17/2022): risks associated with tobacco use include orofacial [...] infantile colic, bone fractures, and childhood obesity. Comments Yes Encounters Date Type Department Care Team Description 04/10/2024 8:23 PM DICTAPHONE TECHNICIAN - 04/10/2024 10:17 PM DICTAPHONE TECHNICIAN Emergency [facility] [address] [facility] [place] [address] Chloé Rodriguez DO Threatened miscarriage (Primary Dx); Less than 8 weeks gestation of Discharge Disposition: Home Self Care 04/10/2024 Travel 04/09/2024 10:30 AM DICTAPHONE TECHNICIAN Phone OB Encounter [facility] [address] [place] [address] Education (Patient started to bleed today) 04/09/[address] [facility] [address] [place] [address] Lupis Mora DO Appointment 04/07/2024 Travel 02/24/2024 Travel 01/20/[address] [facility] [address] [place] [address] Donovan Mccarty MD Results (waiting on result) 01/15/2024 2:30 PM CDT Office Visit [address] [place] [address] Donovan Mccarty MD Consult ( miscarriages ) 01/14/2024 Travel from Last 3 Months Social History Tobacco Use Types Packs/Day Years Used Date Smoking Tobacco: Every Day Cigarettes Smokeless Tobacco: Never Tobacco Cessation:Ready to Q uit: Not Asked; Counseling Given: Not Answered Alcohol Use Standard Drinks/Week Comments Not Currently 0 (1 standard drink = 0.6 oz pur e alcohol) Social Connections Answer Date Recorded Do you often feel lonely or isolated from those around you? 0 01/14/2024 Financial Resource Strain Answer Date R ecorded Difficulty of Paying Living Expenses 3 07/03/2022 Difficulty of Paying Living Expenses Not on file 07/03/2022 Food Insecurity Answer Date Recorded Do you worry your food will run out before you are able to buy more? 1 01/14/2024 Transportation Needs Answer Date Record ed Does lack of transportation keep you from medica l appointments? 1 01/14/2024 Does lack of transportation keep you from work, meetings or getting things that you need? 1 01/14/2024 Housing Stability Answer Date Recorded What is your housing situation today? 1 01/14/2024 Comments Yes Sex and Gender Information Value Date Recorded Sex Assigned at Not on file Legal Sex Female 1:41 PM CDT Gender Identity Not on file Sexual Orientation Not on file Obstetrics History Para Term AB IAB SAB Ectopic Multiple Livin g Live Births 9 1 1 7 2 0 1 1 Date Outcome GA Total Labor Labor/2nd/3rd Weight Sex Type Anes PTL Sonia A1 A5 Name Clin AB AB AB AB AB 2 SAB Demise 2021 Term Vag-S pont Living 4 SAB Current Comments SAB x6, 1 prior to her term , remainder after, all passed spontaneously, all appx 5-6wks, all with +UPT, no US confirmation. Last Filed Vital Signs Vital Sign Reading Time Taken Comments Blood Pressure 126/78 04/10/2024 9:21 PM DICTAPHONE TECHNICIAN Pulse 76 04/10/2024 9:21 PM DICTAPHONE TECHNICIAN Temperature 37.2 C (98.9 F) 04/10/2024 5:54 PM DICTAPHONE TECHNICIAN Respiratory Rate 18 04/10/2024 9:21 PM DICTAPHONE TECHNICIAN Oxygen Saturation 99% 04/10/2024 9:21 PM DICTAPHONE TECHNICIAN Inhaled Oxygen Concentration - - Weight 120.7 kg (266 lb) 04/10/2024 5:54 PM DICTAPHONE TECHNICIAN Height 165.1 cm (5' 5) 04/10/2024 5:54 PM DICTAPHONE TECHNICIAN Body Mass Index 44.26 04/10/2024 5:54 PM DICTAPHONE TECHNICIAN Plan of Treatment Upcoming Encounters Date Type Department Care Team (Late st Contact Info) Description 05/01/2024 10:30 AM DICTAPHONE TECHNICIAN Orders Only [address] [place] [phone] Lab, Kimberly 05/14/2024 9:00 AM DICTAPHONE TECHNICIAN Office Visit [address] [place] [address] Lupis Hansen DO [address] [place] [address] [place] [address] Health Maintenance Due Date Last Done Comments Tdap 11/10/2010 Depression screening for age 12+ 2011 HIV for age 15-65 11/10/2014 HPV series for age 9-26 (1 - 3-dose series) 11/10/2014 Chlamydia for age 16-24 2015 BMI (ht and wt on same day) for age 18+ 11/10/2017 Hepatitis C screening for ag e 18-79 11/10/2017 Tetanus booster 2019 Pap test for age 21-65 11/10/2020 COVID-19 vaccine series ( season) 2023 Influenza for age 9-49 11/24/2023 RSV vaccine for adults or (1 - 1-dose 75+ series) 11/10/2074 Pneumococcal series for age 6-49 Aged Out No longer eligible based on patient's age to complete this topic Procedures Procedure Name Priority Date/Time Associated Diagnosis Comments US OB 1ST TRI SINGLE TA AND TV STAT 04/10/2024 8:39 PM DICTAPHONE TECHNICIAN RH(D) TYPE STAT 04/10/2024 7:34 PM DICTAPHONE TECHNICIAN CBC WITH AUTO DIFFERENTIAL STAT 04/10/2024 7:34 PM DICTAPHONE TECHNICIAN HCG BETA QUANT, STAT 04/10/2024 7:34 PM DICTAPHONE TECHNICIAN BASIC METABOLIC PANEL STAT 04/10/2024 7:34 PM DICTAPHONE TECHNICIAN CBC WITH AUTO DIFFERENTIAL STAT 04/10/2024 7:34 PM DICTAPHONE TECHNICIAN URINALYSIS MICROSCOPIC STAT 04/10/2024 6:02 PM DICTAPHONE TECHNICIAN UA W/ SEDIMENT EXAM REFLEXED PER CRITERIA STAT 04/10/2024 6:02 PM DICTAPHONE TECHNICIAN CHROM TECH 3 Routine 01/15/2024 3:10 PM CDT Recurrent loss CHROM TECH 2 Routine 01/15/2024 3:10 PM CDT Recurrent loss CHROM TECH 1 Routine 01/15/2024 3:10 PM CDT Recurrent loss QC Routine 01/15/2024 3:10 PM CDT Recurrent loss QB Routine 01/15/2024 3:10 PM CDT Recurrent loss YC Routine 01/15/2024 3:10 PM CDT Recurrent loss YB Routine 01/15/2024 3:10 PM CDT Recurrent loss WC Routine 01/15/2024 3:10 PM CDT Recurrent loss WB Routine 01/15/2024 3:10 PM CDT Recurrent loss CB WETLAB Routine 01/15/2024 3:10 PM CDT Recurrent loss CB CHROM Routine 01/15/2024 3:10 PM CDT Recurrent loss CYTOGENETIC CONGENITAL BLOOD STUDIES Routine 01/15/2024 3:10 PM CDT Recurrent loss from Last 3 Months Results * US OB 1ST TRI SINGLE TA AND TV (04/10/2024 8:39 PM DICTAPHONE TECHNICIAN) Anatomical Region Laterality Modality Ultrasound 04/10/2024 10:4 0 PM DICTAPHONE TECHNICIAN Impressions 04/10/2024 10:40 PM DICTAPHONE TECHNICIAN 1. Thickened heterogeneous endometrial lining with complex fluid and cystic spaces but no normal-appearing gestational sac. 2. Corpus luteal cyst in the left ovary. Nonvisualization of the right ovary. No suspicious adnexal mass. 3. Findings are suspicious for failure. Correlate with serial beta HCG levels and follow up imaging as clinically indicated. Dictated by Grace Cid MD @ 04/10/2024 10:40:03 PM (Electronically Signed) Narrative 04/10/2024 10:40 PM DICTAPHONE TECHNICIAN For Patients: As a result of the Century Cures Act, medical imaging exams and procedure reports are released immediately into your electronic medical record. You may view this report before your referring provider. If you have questions, please contact your health care provider. INDICATION: viability/status. LMP 02/27/2024. Beta HCG measures 4043. COMPARISON: Pelvic ultrasound 11/20/2023. TECHNIQUE: 2D breen scale and color Doppler images were acquired of the pelvis using a transabdominal and transvaginal approach. FINDINGS: Sonographic images demonstrate a normal size and smooth outer contour of the uterus. The uterus is anteverted in position. The uterus measures 10.0 cm in length by 5.5 cm in AP diameter by 6.5 cm in transverse dimension. The endometrial lining measures 21 mm in composite thickness. There is complex fluid and cystic spaces in the endometrial canal without definite decidual reaction to suggest a gestational sac. No yolk sac or pole visualized. No significant endometrial blood flow. The right ovary was not visualized. The left ovary measures 3.4 x 2.7 x 2.2 cm and contains a corpus luteal cyst. No suspicious adnexal mass. No free fluid in the pelvic cul-de-sac. Procedure Note Grace Cid MD - 04/10/2024 For Patients: As a result of the Century Cures Act, medical imagingexams and procedure reports are released immediately into your electronicmedical record. You may view this report before your referring provider.If you have questions, please contact your health care provider. INDICATION: viability/status. LMP 02/27/2024. Beta HCG measures 4043. COMPARISON: Pelvic ultrasound 11/20/2023. TECHNIQUE: 2D breen scale and color Doppler images were acquired of the pelvis using atransabdominal and transvaginal approach. FINDINGS: Sonographic images demonstrate a normal size and smooth outer contour ofthe uterus. The uterus is anteverted in position. The uterus measures 10.0cm in length by 5.5 cm in AP diameter by 6.5 cm in transverse dimension.The endometrial lining measures 21 mm in composite thickness. There iscomplex fluid and cystic spaces in the endometrial canal without definitedecidual reaction to suggest a gestational sac. No yolk sac or polevisualized. No significant endometrial blood flow. The right ovary was not visualized. The left ovary measures 3.4 x 2.7 x2.2 cm and contains a corpus luteal cyst. No suspicious adnexal mass. Nofree fluid in the pelvic cul-de-sac. IMPRESSION: 1. Thickened heterogeneous endometrial lining with complex fluid andcystic spaces but no normal-appearing gestational sac. 2. Corpus luteal cyst in the left ovary. Nonvisualization of the rightovary. No suspicious adnexal mass. 3. Findings are suspicious for failure. Correlate with serialbeta HCG levels and follow up imaging as clinically indicated. Dictated by Grace Cid MD @ 04/10/2024 10:40:03 PM (Electronically Signed) us Clara Lanza MD US Final Re sult * (ABNORMAL) CBC WITH AUTO DIFFERENTIAL (04/10/2024 7:34 PM DICTAPHONE TECHNICIAN) WHITE BLOOD COUNT 11.5(H) 4.5 - 11.0 thou/cu mm 04/10/2024 7:48 PM [facility] RED BLOOD COUNT 4.25 4.00 - 5.20 mil/cu mm 04/10/2024 7:48 PM [facility] HEMOGLOBIN 12.7 12.0 - 16.0 g/dL 04/10/2024 7:48 PM [facility] HEMATOCRIT 38.6 33.0 - 51.0 % 04/10/2024 7:48 PM [facility] MCV 91 80 - 100 fL 04/10/2024 7:48 PM [facility] MCH 29.9 26.0 - 34.0 pg 04/10/2024 7:48 PM [facility] MCHC 32.9 32.0 - 36.0 g/dL 04/10/2024 7:48 PM [facility] RDW 12.4 11.5 - 15.5 % 04/10/2024 7:48 PM [facility] PLATELET COUNT 212 140 - 440 thou/cu mm 04/10/2024 7:48 PM [facility] MPV 10.2 6.5 - 11.0 fL 04/10/2024 7:48 PM [facility] % NEUT 68.5 % 04/10/2024 7:48 PM [facility] % LYMPH 23.1 % 04/10/2024 7:48 PM [facility] % MONO 7.6 % 04/10/2024 7:48 PM [facility] % EOS 0.7 % 04/10/2024 7:48 PM [facility] % BASO 0.1 % 04/10/2024 7:48 PM [facility] ABSOLUTE NEUTROPHILS 7.9(H) 1.7 - 7.0 thou/cu mm 04/10/2024 7:48 PM [facility] ABSOLUTE LYMPHOCYTES 2.7 0.9 - 2.9 thou/cu mm 04/10/2024 7:48 PM DICTAPHONE TECHNICIAN [facility] ABSOLUTE MONOCYTES 0.9(H) <0.9 thou/cu mm 04/10/2024 7:48 PM DICTAPHONE TECHNICIAN [facility] ABSOLUTE EOSINOPHILS 0.1 <0.5 thou/cu mm 04/10/2024 7:48 PM DICTAPHONE TECHNICIAN [facility] ABSOLUTE BASOPHILS 0.0 <0.3 thou/cu mm 04/10/2024 7:48 PM DICTAPHONE TECHNICIAN [facility] Blood BLOOD SPECIMEN / Unknown Venipuncture / Unknown 04/10/2024 7:34 PM DICTAPHONE TECHNICIAN 04/10/2024 7:44 PM DICTAPHONE TECHNICIAN us Orville MORALES HEMATOLOGY Fin al Result Performing Organization Address [facility] Co de Phone Number [facility] [address] [place] [address] * RH(D) TYPE (04/10/2024 7:34 PM DICTAPHONE TECHNICIAN) RH(D) TYPE Negative 04/10/2024 8:01 PM DICTAPHONE TECHNICIAN [facility] BLOOD BANK Blood BLOOD SPECIMEN / Unknown Venipuncture / Unknown 04/10/2024 7:34 PM DICTAPHONE TECHNICIAN 04/10/2024 7:44 PM DICTAPHONE TECHNICIAN us Clara Lanza MD BLOOD BANK Final Re sult [facility] BLOOD BANK [address] [place] [address] * HCG BETA QUANT, (04/10/2024 7:34 PM DICTAPHONE TECHNICIAN) HCG BETA QUANT,PREGNANC Y 4,043 mIU/mL 04/10/2024 8:17 PM DICTAPHONE TECHNICIAN [facility] Blood BLOOD SPECIMEN / Unknown Venipuncture / Unknown 04/10/2024 7:34 PM DICTAPHONE TECHNICIAN 04/10/2024 7:44 PM [facility] - 04/10/2024 8:17 PM DICTAPHONE TECHNICIAN Expected Value for Healthy Non- premenopausal women <5.3mIU/mL FOR GESTATIONAL ASSESSMENT-See Range Table Below Weeks of gestation hCG mIU/mL 3 weeks gestation (5.8 - 71.2) 4 weeks gestation (9.5 - 750) 5 weeks gestation (217 - 7138) 6 weeks gestation (158 - 31,795) 7 weeks gestation (3,697 - 163,563) 8 weeks gestation (32,065 - 149,571) 9 weeks gestation (63,803 - 151,410) 10 weeks gestation (46,509 - 186,977) 12 weeks gestation (27,832 - 210,612) 14 weeks gestation (13,950 - 62,530) 15 weeks gestation (12,039 - 70,971) 16 weeks gestation (9,040 - 56,451) 17 weeks gestation (8,175 - 55,868) 18 weeks gestation (8,099 - 58,176) Biotin supplements may cause clinically significant interference for this test assay. If interference is suspected, it is strongly recommended that biotin is discontinued for at least one week prior to retesting. us Clara Lanza MD CHEMISTRY Final Re sult [facility] [address] [place] [address] * BASIC METABOLIC PANEL (04/10/2024 7:34 PM DICTAPHONE TECHNICIAN) SODIUM 138 136 - 145 mmol/L 04/10/2024 8:07 PM [facility] POTASSIUM 3.8 3.5 - 5.1 mmol/L 04/10/2024 8:07 PM [facility] CHLORIDE 99 98 - 107 mmol/L 04/10/2024 8:07 PM [facility] CO2,TOTAL 25 22 - 29 mmol/L 04/10/2024 8:07 PM [facility] ANION GAP 14 5 - 18 04/10/2024 8:07 PM [facility] GLUCOSE 96 70 - 99 mg/dL 04/10/2024 8:07 PM [facility] CALCIUM 9.6 8.8 - 10.4 mg/dL 04/10/2024 8:07 PM [facility] Comment: Reference ranges for this test were updated on 01/28/2024 to reflect our healthy population more accurately. Reference range changes are not retroactively applied to results, but previous results using the same methodology can be interpreted in the context of the new reference range. BUN 9 6 - 20 mg/dL 04/10/2024 8:07 PM [facility] CREATININE 0.66 0.50 - 0.90 mg/dL 04/10/2024 8:07 PM [facility] BUN/CREAT RATIO 14 10 - 20 8:07 PM [facility] eGFR >90 >90 mL/min/1.7 3m2 04/10/2024 8:07 PM [facility] Comment:As of 2021, eG FR is calculated by the CKD-EPI creatinine equation without race adjustment. eGFR can be influenced by muscle mass, exercise, and diet. The reported eGFR is an estimation only and is only applicable if the renal function is stable. Blood BLOOD SPECIMEN / Unknown Venipuncture / Unknown 04/10/2024 7:34 PM DICTAPHONE TECHNICIAN 04/10/2024 7:44 PM DICTAPHONE TECHNICIAN us Orville MORALES CHEMISTRY Fin al Result [facility] [address] [place] [address] * (ABNORMAL) URINALYSIS MICROSCOPIC (04/10/2024 6:02 PM DICTAPHONE TECHNICIAN) RBC 26-50(A) 0-2, None Seen /HPF 04/10/2024 6:21 PM [facility] WBC 6-10(A) 0-2, 3-5, None Seen /HPF 04/10/2024 6:21 PM [facility] BACTERIA Many(A) None Seen, Rare, Few Bacteria/H PF 04/10/2024 6:21 PM [facility] EPITHELIAL CELLS Many(A) None Seen, Few Epi/HPF 04/10/2024 6:21 PM [facility] Urine URINE SPECIMEN / Unknown Non-Blood / Unknown 04/10/2024 6:02 PM DICTAPHONE TECHNICIAN 04/10/2024 6:05 PM DICTAPHONE TECHNICIAN us Orville Chen PA URINE Fin al Result [facility] [address] [place] [address] * (ABNORMAL) UA W/ SEDIMENT EXAM REFLEXED PER CRITERIA (04/10/2024 6:02 PM DICTAPHONE TECHNICIAN) COLOR Yellow Yellow Color 04/10/2024 6:21 PM [facility] CLARITY Cloudy(A) Clear Clarity 04/10/2024 6:21 PM [facility] SPECIFIC GRAVITY,URINE >=1.030(A) 1.010, 1.015, 1.020, 1.025 04/10/2024 6:21 PM [facility] PH,URINE 5.5 6.0, 7.0, 8.0, 5.5, 6.5, 7.5, 8.5 04/10/2024 6:21 PM [facility] UROBILINOGEN,QU ALITATIVE Normal Normal EU/dl 04/10/2024 6:21 PM [facility] PROTEIN, URINE 30(A) Negative mg/dL 04/10/2024 6:21 PM [facility] GLUCOSE, URINE Negative Negative mg/dL 04/10/2024 6:21 PM [facility] KETONES,URINE 15(A) Negative mg/dL 04/10/2024 6:21 PM [facility] BILIRUBIN,URINE Abnormal(A) Negative 04/10/19 6:21 PM [facility] Comment:A variety of metabol ites and/or medications may result in a positive bilirubin result. Clinical correlation is recommended. OCCULT BLOOD,URINE Large(A) Negative 04/10/2024 6:21 PM [facility] NITRITE Negative Negative 04/10/2024 6:21 PM DICTAPHONE TECHNICIAN [facility] LEUKOCYTE ESTERASE Negative Negative 04/10/2024 6:21 PM DICTAPHONE TECHNICIAN [facility] Urine URINE SPECIMEN / Unknown Non-Blood / Unknown 04/10/2024 6:02 PM DICTAPHONE TECHNICIAN 04/10/2024 6:05 PM DICTAPHONE TECHNICIAN us Orville Chen PA URINE Fin al Result Performing Organization Address [facility] Co de Phone Number [facility] [address] [place] [address] * CB WETLAB (01/15/2024 3:10 PM CDT) Blood (Peripheral Blood) [facility] Collect / Unknown 01/15/2024 3:10 PM CDT 01/15/2024 3:10 PM CDT us Donovan Mccarty MD LABORATORY Final Re sult Performing Organization Address [facility] de Phone Number [facility] [address] [address], [place] * YC (01/15/2024 3:10 PM CDT) Blood (Peripheral Blood) [facility] Collect / Unknown 01/15/2024 3:10 PM CDT 01/15/2024 3:10 PM CDT us Donovan Mccarty MD LABORATORY Final Re sult Performing Organization Address [facility] Co de Phone Number [facility] [address] [place] [address], [place] * QC (01/15/2024 3:10 PM CDT) Blood (Peripheral Blood) [facility] Collect / Unknown 01/15/2024 3:10 PM CDT 01/15/2024 3:10 PM CDT us Donovan Mccarty MD LABORATORY Final Re sult Performing Organization Address [facility] Co de Phone Number [facility] [address] [place] [address], [place] * YB (01/15/2024 3:10 PM CDT) Blood (Peripheral Blood) [facility] Collect / Unknown 01/15/2024 3:10 PM CDT 01/15/2024 3:10 PM CDT Donovan Mccarty MD LABORATORY Final Re sult Performing Organization Address [facility] Phone Number [facility] [address] [place] [address], [place] * WB (01/15/2024 3:10 PM CDT) Blood (Peripheral Blood) [facility] Collect / Unknown 01/15/2024 3:10 PM CDT 01/15/2024 3:10 PM CDT Donovan Mccarty MD LABORATORY Final Re sult Performing Organization Address [facility] Phone Number [facility] [address] [address], [place] * QB (01/15/2024 3:10 PM CDT) Blood (Peripheral Blood) [facility] Collect / Unknown 01/15/2024 3:10 PM CDT 01/15/2024 3:10 PM CDT Donovan Mccarty MD LABORATORY Final Re sult Performing Organization Address [facility] Phone Number [facility] [address] [address], [place] * CHROM TECH 3 (01/15/2024 3:10 PM CDT) Blood (Peripheral Blood) [facility] Collect / Unknown 01/15/2024 3:10 PM CDT 01/15/2024 3:10 PM CDT Donovan Mccarty MD LABORATORY Final Re sult Performing Organization Address [facility] Co de Phone Number [facility] [address] [place] [address], [place] * CHROM TECH 2 (01/15/2024 3:10 PM CDT) Blood (Peripheral Blood) [facility] Collect / Unknown 01/15/2024 3:10 PM CDT 01/15/2024 3:10 PM CDT us Donovan Mccarty MD LABORATORY Final Re sult Performing Organization Address [facility] de Phone Number [facility] [address] [address], [place] * CHROM TECH 1 (01/15/2024 3:10 PM CDT) Blood (Peripheral Blood) [facility] Collect / Unknown 01/15/2024 3:10 PM CDT 01/15/2024 3:10 PM CDT us Donovan Mccarty MD LABORATORY Final Re sult Performing Organization Address [facility] Center Phone Number [facility] [address] [address], [place] * CB CHROM (01/15/2024 3:10 PM CDT) Blood (Peripheral Blood) [facility] Collect / Unknown 01/15/2024 3:10 PM CDT 01/15/2024 3:10 PM CDT us Donovan Mccarty MD LABORATORY Final Re sult Performing Organization Address [facility] Phone Number [facility] [address] [address], [place] * WC (01/15/2024 3:10 PM CDT) Blood (Peripheral Blood) [facility] / Unknown 01/15/2024 3:10 PM CDT 01/15/2024 3:10 PM CDT us Donovan Mccarty MD LABORATORY Final Re sult Performing Organization Address [facility] Co de Phone Number [facility] [address] [address], [place] * CYTOGENETIC CONGENITAL BLOOD STUDIES (01/15/2024 3:10 PM CDT) RFR Recurrent Loss 01/27/2024 5:00 PM DICTAPHONE TECHNICIAN [facility]-C ENTRAL LABORATORY TEST & RESULT SUMMARY Chromosome Analysis: Normal female karyotype. 01/27/2024 5:00 PM [facility] _ 01/27/2024 5:00 PM [facility] ISCN 46,XX 01/27/2024 5:00 PM [facility] INTERPRETATION Chromosome analysis revealed a normal female karyotype with no numeric or structural chromosome abnormalities detected. 01/27/2024 5:00 PM [facility] LAB TEST DETAILS Fully Analyzed Metaphases: 6 Partially Analyzed Metaphases: 14 Full Karyotypes: 2 Band Length Range: 575-600 01/27/2024 5:00 PM [facility] SOURCE Peripheral Blood (10ml NaHep) Peripheral Blood (5ml EDTA) 01/27/2024 5:00 PM [facility] METHODS Cultures used in chromosome analysis may include synchronized and/or unsynchronized cultures. Chromosome analysis is performed selecting the highest quality distribution sales representative G-banded metaphases available. A minimum of six metaphases were fully analyzed. 01/27/2024 5:00 PM [facility] DISCLAIMER This test was developed and its performance characteristics determined by the [facility]. It has not been cleared or approved by the U.S. Food and Drug Administration. The FDA does not require these tests to go through premarket FDA review. These tests are used for clinical purposes. They should not be regarded as investigational or for research. This laboratory is certified under the Clinical Laboratory Improvement Amendments (CLIA) as qualified to perform high complexity clinical laboratory testing. 01/27/2024 5:00 PM [facility] [employer] Blood (Peripheral Blood) [facility] Collect / Unknown 01/15/2024 3:10 PM CDT 01/15/2024 3:10 PM CDT us Donovan Mccarty MD LABORATORY Final Re sult [facility] [address] [place] [address], [place] from Last 3 Months Insurance [facility] Care Teams Cabinet Mounter Relationship Specialty Start Date End Date Pcp, No . PCP - General 12/10/23
--- OUTSIDE RECORDS SUMMARY | 2024-04-12 20:45 | XMS_ITS ---
Author Organization [facility] Address [address] [place] [address] Care Team Providers Care Coiler Name Role Phone Unavailable Unavailable Unavailable Surgery Details Not on file Complications Check Surgery Details section. Procedure Estimated Blood Loss Check Surgery Details section. Procedure Findings Check Surgery Details section. Procedure Specimens Taken Check Surgery Details section.
--- OUTSIDE RECORDS SUMMARY | 2024-04-12 20:45 | XMS_ITS | Continuity of Care Document ---
Author Name NwHIN User [email or web address] Address Unknown Organization Unknown Address Unknown Procedures FILTER APPLIED:Only known Procedures with Onset Date within the last 5 years Procedure Date Procedure Provider Additiona l Information Status BASIC METABOLIC PANEL (99702) Completed HCG BETA QUANT, (93490) Complete d RH(D) TYPE (96160) Compl eted CBC AND DIFFERENTIAL (47214) Completed URINALYSIS MICROSCOPIC (46892) Completed UA W/ SEDIMENT EXAM REFLEXED PER CRITERIA (79731) Completed COMP METABOLIC PANEL (81032) Completed CBC W PLT NO DIFF (17307) Completed HCG BETA QUANT, (09687) Complete d Encounters FILTER APPLIED:Only known Encounters with Admission Date within the last 5 years Encounter Location Admission Discharge Billing Code [employer] David cunha [facility] [id number] LANDY FERNANDEZ Emergency [id number] MARTINE BEARD
--- OUTSIDE RECORDS SUMMARY | 2024-04-12 20:45 | XMS_ITS | Clinical Summary ---
Author Organization [facility] Address [address] [place] [address] Care Team Providers Care Boom Boss Name Role Phone Hipolito Acuna M.D. Primary Care Provider Source Comments Patient records contain information from all sites at [facility]. For routine questions regarding patient records, call [phone] during business hours, M-F 8:00 AM - 5:00 PM Central Time. Record requests for emergency care only can be directed to [phone] at any time.[facility] Allergies Active Allergy Reactions Criticality Noted Date [...] education completed. Pre-reg completed at [facility]. LMP:06/26/22 ILLI: 04/02/23 provider:ribbon hand FOB involved:yes, Francisco Javier Problem Noted Date [...] report of patient based on testing at [facility] on 05/03/2021 Immunizations Immunization Administration Dates Next Due Rho (D) Immune Globulin (IM only) 11/17/2021, Tdap 11/17/2021 Family History Medical History Relation Name Comments No Known Problems Father Diabetes Maternal Grandmother No Known Problems Mother No Known Problems Paternal Grandfather No Known Problems Paternal Grandmother Relation Name Status Comments Father Maternal Grandfather Maternal Grandmother Mother Paternal Grandfather Paternal Grandmother Social History Tobacco Use Types Packs/Day Years Used Date Smoking Tobacco: Former Cigarettes Smokeless Tobacco: Never Tobacco Cessation:Counseling Given: Not Answered Alcohol Use Standard Drinks/Week Comments Not Currently 0 (1 standard drink = 0.6 oz pur e alcohol) [facility] Utilities Answer Date Recorded In the past 12 months has e [employer], gas, oil, or water [employer] threatened to shut off services in your [...] often do you attend chur ch or sabianism services? Never 06/21/2021 Do you belong to any clubs o r organizations such as faith groups, unions, fraternal or athletic groups, or [...] Answer Date Recorded PHQ-2 Score 0 11/13/2023 [facility] - Occupational Stress Questionnaire Answer Date [...] your living situation today? I have a [facility] place to live 11/10/2023 Education Answer Date [...] PM CDT Legal Sex Female 2:35 PM RIBBON C[employer]TER Gender Identity Female 06/21/2021 3:06 PM CDT Sexual Orientation Straight 07/27/2022 7: 29 PM CDT Last Filed Vital Signs Vital Sign Reading Time Taken Comments Blood Pressure 120/64 02/19/2022 3:31 PM [employer] C[employer]TER Pulse 68 05/11/2021 9:05 AM [employer] C[employer]TER Temperature - - Respiratory Rate 16 05/11/2021 9:05 AM [employer] C[employer]TER Oxygen Saturation - - Inhaled Oxygen Concentration - - Weight 126 kg (277 lb 3.7 oz) 02/19/2022 3:31 PM [employer] C[employer] Height 168 cm (5' 6.14) 06/30/2021 3:37 PM CDT Body Mass Index 44.56 06/30/2021 3:37 PM CDT Plan of Treatment Health Maintenance Due Date Last Done Comments Tobacco Cessation counseling 1999 HPV Vaccines (1 - 3-dose series) 11/10/2014 Hepatitis B Vaccines (1 of 3 - 19+ 3-dose series) 11/10/2018 Chlamydia and Gonorrhea Screening 06/30/2022 022 COVID-19 Vaccine (1 - 2023-2 5 season) 2023 Influenza Vaccine (#1) 2023 Depression Monitoring (PHQ-9) 03/14/2024 11/13/2023 Depression Monitoring (PHQ-9 for quality tracking) 03/25/2024 Cervical/Vaginal Cancer Screening 06/30/2024 022 DTaP,Tdap,and Td Vaccines (2 - Td or Tdap) 11/18/2031 11/17/2021 HIV Screening Completed 06/30/2021 Hepatitis C Screening Completed 06/30/2021 IPV Vaccines Aged Out No longer eligi ble based on patient's age to complete this topic Pneumococcal vaccine (0-49 years) Aged Out No longer eligible based on patient's age to complete this topic RSV vaccine - (32-3 6 weeks) or 60+ years (No Doses Required) Completed Procedures Procedure Name Priority Date/Time Associated Diagnosis [...] MICROBIOLOGY - BLOOD ORD ERABLES Final Result [facility] [address] [place] [address], [facility] in [place] [address] * HCV Ab Scrn w/Reflex to HCV PCR, Serum (06/30/2021 4:36 PM CDT) HCV Ab Screen, S Negative Negative 07/01/2021 10:[address] [facility] Comment:[id number] rat io is <1.00. Blood (Blood, Venous) 06/30/2021 4:36 PM CDT 07/01/2021 8:51 AM CDT us Donovan Mccarty M.D. LAB MICROBIOLOGY - BLOOD ORD ERABLES Final Result Performing Organization Address City/[facility]/ZIP Co de Phone Number [facility] [address] [place] [address] [facility] Dept. of Laboratory Medicine and Pathology [address] [place] [address] * ThinPrep Screen HPV Reflex (06/30/2021 4:21 [...] ORDERABLES Fi nal Result Performing Organization Address City/[facility]/ZIP Co de Phone Number [facility] [address] [place] [address], [facility] [address] [place] [address] * Chlamydia / Gonorrhoeae Amplified RNA (06/30/2021 [...] O RDERABLES Final Result Performing Organization Address City/[facility] Co de Phone Number [facility] [address] [place] [address], [facility] [employer] [facility] [place] [address] [place] [address] from Last 3 Months or Most Recently Relevant to Health Maintenance Insurance [facility] [place] [id number] Care Teams Boom Boss Relationship Specialty Start Date End Date Hipolito Acuna M.D. [address] [place] [id number] [facility] - General 11/14/23
[2024-04-12 20:50] VITALS: BP 129/90; PULSE 100; RESP 16; TEMP 37.2; O2SAT 99; BMI 42.9
== END 2024-04-12 21:54 | disposition left against medical advice (07) ==
LOC: ED 21:48
DX: Z53.21 Procedure and treatment not carried out due to patient leaving prior to being seen by health care provider (principal)